=== PATIENT | male | born 1950 | race Caucasian/White ===

== ENCOUNTER → 2016-07-28 11:48 | Outpatient (CLI) | payer MEDICARE | END | disposition home or self-care (01) | LOC: D.LABREF 07-18 12:55 | DX: J92.0 Pleural plaque with presence of asbestos (principal) ==

== ENCOUNTER → 2016-11-01 11:08 | Outpatient (CLI) | payer MEDICARE | END | disposition home or self-care (01) | LOC: D.RAD 11:08 | DX: J44.9 Chronic obstructive pulmonary disease, unspecified (principal) ==

== ENCOUNTER → 2017-06-30 09:27 | Outpatient (CLI) | payer MEDICARE | END | disposition home or self-care (01) | LOC: D.RT 09:27 | DX: J44.9 Chronic obstructive pulmonary disease, unspecified (principal) ==

== ENCOUNTER 2018-04-18 07:50 | Outpatient (CLI) | payer MEDICARE ==
[~2018-04-18] VITALS: Ht 172.7 cm; Wt 75.0 kg
[2018-04-18 08:14] LABS: BASOPHILS 0.5 % (0-2); EOSINOPHILS 3.4 % (0-7); HEMOGLOBIN 9.6 g/dL (13.5-17.5); IMMATURE GRANULOCYTES 0.2 % (0-5); LYMPHOCYTES 10.4 % (15-50); MCH 28.7 pg (26.0-34.0); MCV 95.5 fL (80.0-100.0); MEAN PLATELET VOLUME 8.8 fL (7.4-10.4); MONOCYTES 9.2 % (2-11); NEUTROPHILS 76.3 % (40-80); PLATELET COUNT 382 10x3/uL (130-400); RBC 3.35 10x6/uL (4.20-6.10); RDW 13.2 % (11.5-14.5); WBC 8.9 10x3/uL (4.8-10.8)
[2018-04-18 08:25] LABS: ANION GAP 5.1 mmol/L (8-16); CALCIUM 9.2 mg/dL (8.5-10.1); CARBON DIOXIDE 38.2 mmol/L (21.0-32.0); CREATININE - SERUM 1.1 mg/dL (0.6-1.3); POTASSIUM - SERUM 4.3 mmol/L (3.5-5.1)
[2018-04-18 08:33] LABS: APTT 34.1 SECONDS (22.8-39.4); INR 1.02 (0.85-1.17); PROTIME 12.9 SECONDS (11.6-15.0)
[2018-04-18] MEDS ORDERED: KLONOPIN0.5 MG PO (08:45)
[2018-04-18] MEDS ORDERED: LISINOPRIL10 MG PO (08:45)
[2018-04-18] MEDS ORDERED: HYDROCODON-ACET15 ML PO (08:47)
[2018-04-18] MEDS ORDERED: ELAVIL10 MG PO (08:48)
[2018-04-18 09:02] VITALS: BP 124/68; Ht 172.7 cm; Wt 75.0 kg
== END 2018-04-18 13:28 | disposition home or self-care (01) ==
LOC: D.SP 07:50 → D.CT 10:00 → D.SP 13:28
PROVIDERS: General Practice
DX: D61.9 Aplastic anemia, unspecified (principal); Z01.812 Encounter for preprocedural laboratory examination